=== PATIENT | male | born 1940 | race Caucasian/White ===

== ENCOUNTER 2016-09-08 09:50 | Inpatient (IN) ==
[2016-09-08 14:17] LABS: Hematocrit 42.4 % (37.5-50.1)
[2016-09-08 14:18] LABS: Hemoglobin 14.6 g/dL (12.9-16.9)
[2016-09-09 07:12] LABS: Hematocrit 40.6 % (37.5-50.1); Hemoglobin 14.3 g/dL (12.9-16.9)
[2016-09-09 10:33] VITALS: BP 156/92
== END 2016-09-09 11:43 | disposition home or self-care (01) | DRG 483 ==
LOC: SAMDAY 09:50 → 3NENU 14:24
PROVIDERS: ADMIT Orthopaedic Surgery; ATTEND Orthopaedic Surgery